=== PATIENT | female | born 1960 | race Caucasian/White ===

== ENCOUNTER 2016-11-20 09:58 | Emergency (ER) | payer MEDICAID ==
[~2016-11-20] VITALS: Ht 162.6 cm; Wt 93.8 kg
[2016-11-20 10:00] VITALS: BP 143/85
[2016-11-20] MEDS ORDERED: PROCHLORPERAZINE 5 MG/ML, 2ML ONE (10:50)
[2016-11-20] MEDS ORDERED: DIPHENHYDRAMINE 50 MG/ML, 1ML ONE (10:50)
== END 2016-11-20 10:57 | disposition home or self-care (01) ==
LOC: ED 10:37
DX: H10.021 Other mucopurulent conjunctivitis, right eye (principal); F12.10 Cannabis abuse, uncomplicated; E78.00 Pure hypercholesterolemia, unspecified
CPT/HCPCS: 99283

== ENCOUNTER 2019-08-26 04:04 | Emergency (ER) | payer MEDICAID, OTHER ==
[~2019-08-26] VITALS: Ht 162.6 cm; Wt 88.5 kg
[2019-08-26] MEDS ORDERED: ATOR20TA PO (04:11)
[2019-08-26] MEDS ORDERED: CEPH-368 PO (04:12)
--- NOTE | 2019-08-26 04:21 | NUR ---
THIS IS A 58Y F THAT COMES IN FOR ABD PAIN/ LOWER BACK PAIN. PT WAS SEEN [facility] FOR THIS AND WAS TOLD THAT MAYBE SHE HAS A KIDNEY INFECTION. PT WAS GIVEN ABX AND HAS STARTED TAKING THEM DIRECTED. PT CONNECTED TO MONITORING VSS, NADN.
[2019-08-26 04:41] LABS: MICROSCOPIC INDICATED
[2019-08-26] MEDS ORDERED: ONDANSETRON 2MG/ML, 2ML ONE (04:56)
[2019-08-26] MEDS ORDERED: KETOROLAC 30 MG/1 ML ONE (04:56)
[2019-08-26] MEDS ORDERED: SODIUM CHLORIDE FLUSH 10ML SYR IVF ONE (05:00)
[2019-08-26] MEDS ORDERED: ONDANSETRON 2MG/ML, 2ML IVPush ONE ×2 (05:00→07:30)
[2019-08-26] MEDS ORDERED: KETOROLAC 30 MG/1 ML IVPush ONE (05:00)
[2019-08-26 05:27] LABS: BASOPHILS # (AUTO) 0.02 x10^3/uL (0-0.1); BASOPHILS % (AUTO) 0 % (0-1); EOSINOPHILS % (AUTO) 1 % (1-7); LYMPHOCYTES # (AUTO) 1.33 x10^3/uL (1-3.4); LYMPHOCYTES % (AUTO) 15 % (22-44); MD NO; MEAN CORPUSCULAR HEMOGLOBIN 31.1 pg (27.0-34.8); MEAN CORPUSCULAR HGB CONC 33.6 g/dL (32.4-35.8); MEAN CORPUSCULAR VOLUME 92.5 fL (80-100); MONOCYTES # (AUTO) 0.79 x10^3/uL (0.2-0.8); MONOCYTES % (AUTO) 9 % (2-9); NEUTROPHILS % (AUTO) 75 % (42-75); PLATELET COUNT 279 x10^3/uL (130-400); RED BLOOD COUNT 4.03 x10^6/uL (3.82-5.3); RED CELL DISTRIBUTION WIDTH 13.7 % (9.6-15.2)
[2019-08-26 05:41] LABS: ALANINE AMINOTRANSFERASE 25 U/L (12-78); ALBUMIN 3.3 g/dL (3.4-5.0); ANION GAP 8 mmol/L (5-15); CALCIUM 8.6 mg/dL (8.5-10.1); CHLORIDE 110 mmol/L (98-107); CREATININE 1.06 mg/dL (0.55-1.02)
[2019-08-26 05:43] LABS: ALKALINE PHOSPHATASE 116 U/L (45-117); BILIRUBIN,TOTAL 0.6 mg/dL (0.2-1.0)
[2019-08-26] MEDS ORDERED: OMNIPAQUE 350 MG/ML, 100ML BOTTLE ONE (06:33)
--- NOTE | 2019-08-26 07:16 | NUR ---
STRAIGHT CATH PERFORMED. PT TOLERATED WELL. VSS AT THIS TIME, PT STATES PAIN IS COMING BACK BUT DENIES NEED FOR PAIN MEDICATION AT THIS TIME, ERPROVIDER PLACED ORDER FOR PRN SHOULD PT REQUEST
[2019-08-26] MEDS ORDERED: MORPHINE SULFATE 4 MG/ML, 1ML IVPush PRN (07:30)
[2019-08-26 07:45] LABS: MICROSCOPIC INDICATED
[2019-08-26 08:36] VITALS: BP 130/58
== END 2019-08-26 09:36 | disposition home or self-care (01) ==
LOC: ED 05:21
DX: N13.2 Hydronephrosis with renal and ureteral calculous obstruction (principal); E78.00 Pure hypercholesterolemia, unspecified; Z88.8 Allergy status to other drugs, medicaments and biological substances
CPT/HCPCS: 36415; 74177; 80053; 81001; 83690; 85025; 87086; 96374; 96375; 99285; J1885; J2405; Q9967

== ENCOUNTER 2019-08-27 20:45 | Inpatient (IN) | payer OTHER ==
[~2019-08-27] VITALS: Ht 162.6 cm; Wt 96.9 kg
[~2019-08-27 20:45] MED LIST: ATOR20TA PO; CEPH-368 PO
[2019-08-27] MEDS ORDERED: KETOROLAC 30 MG/1 ML ONE (21:30)
[2019-08-27] MEDS ORDERED: MORPHINE SULFATE 4 MG/ML, 1ML ONE (21:30)
[2019-08-27] MEDS ORDERED: SODIUM CHLORIDE FLUSH 10ML SYR IVF ONE (21:30)
[2019-08-27] MEDS ORDERED: MORPHINE SULFATE 4 MG/ML, 1ML IVPush PRN (21:30)
[2019-08-27] MEDS ORDERED: KETOROLAC 30 MG/1 ML IVPush ONE (21:30)
[2019-08-27] MEDS ORDERED: ONDANSETRON 2MG/ML, 2ML ONE (21:30)
[2019-08-27] MEDS ORDERED: ONDANSETRON 2MG/ML, 2ML IVPush ONE (21:30)
--- NOTE | 2019-08-27 21:30 | NUR ---
PT AMBULATED TO BATHROOM WITH OUT DIFFICULTY
--- NOTE | 2019-08-27 21:37 | NUR ---
IV PLACED, LABS/URINE SENT VIA TUBE SYSTEM.
[2019-08-27 21:46] LABS: BASOPHILS # (AUTO) 0.04 x10^3/uL (0-0.1); BASOPHILS % (AUTO) 0 % (0-1); EOSINOPHILS # (AUTO) 0.19 x10^3/uL (0-0.4); EOSINOPHILS % (AUTO) 2 % (1-7); LYMPHOCYTES # (AUTO) 1.47 x10^3/uL (1-3.4); LYMPHOCYTES % (AUTO) 13 % (22-44); MD NO; MEAN CORPUSCULAR HEMOGLOBIN 31.1 pg (27.0-34.8); MEAN CORPUSCULAR HGB CONC 33.6 g/dL (32.4-35.8); MEAN CORPUSCULAR VOLUME 92.3 fL (80-100); MEAN PLATELET VOLUME 8.2 fL (7.4-10.4); MONOCYTES # (AUTO) 0.83 x10^3/uL (0.2-0.8); MONOCYTES % (AUTO) 7 % (2-9); NEUTROPHILS # (AUTO) 9.23 x10^3/uL (1.8-6.8); NEUTROPHILS % (AUTO) 78 % (42-75); PLATELET COUNT 302 x10^3/uL (130-400); RED CELL DISTRIBUTION WIDTH 13.5 % (9.6-15.2)
[2019-08-27 21:48] LABS: ALANINE AMINOTRANSFERASE 31 U/L (12-78); ALBUMIN 3.5 g/dL (3.4-5.0); ANION GAP 3 mmol/L (5-15); CALCIUM 8.7 mg/dL (8.5-10.1); CHLORIDE 108 mmol/L (98-107); CREATININE 1.25 mg/dL (0.55-1.02)
[2019-08-27 21:50] LABS: ALKALINE PHOSPHATASE 130 U/L (45-117); BILIRUBIN,TOTAL 0.6 mg/dL (0.2-1.0); TOTAL PROTEIN 7.6 g/dL (6.4-8.2)
--- NOTE | 2019-08-27 21:55 | NUR ---
medications for pt given to flor hernández in report.
[2019-08-27 22:03] LABS: MICROSCOPIC AUTO
[2019-08-27 23:04] LABS: MICROSCOPIC INDICATED
--- NOTE | 2019-08-28 00:20 | NUR ---
Report received from GOSIA Tejeda. This RN to assume care. Patient to be admitted.
[2019-08-28] MEDS ORDERED: OXYcodone IR 5MG TABLET PO PRN (01:00)
[2019-08-28] MEDS ORDERED: POLYETHYLENE GLYCOL 17 GM PACKET PO PRN (01:00)
[2019-08-28] MEDS ORDERED: PROMETHAZINE 25 MG/ML, 1ML IM PRN (01:00)
[2019-08-28] MEDS ORDERED: ONDANSETRON 2MG/ML, 2ML IVPush PRN ×2 (01:00→15:30)
[2019-08-28] MEDS ORDERED: ACETAMINOPHEN 325 MG TABLET PO PRN ×2 (01:00→15:30)
[2019-08-28] MEDS ORDERED: BISACODYL 10 MG SUPP PR PRN (01:00)
[2019-08-28] MEDS: ATORVASTATIN 20 MG TABLET PO SCH ×2 (01:00→20:41)
[2019-08-28] MEDS ORDERED: morphine SULFATE 10 MG/ML, 1ML IVPush PRN (01:00)
[2019-08-28] MEDS ORDERED: ONDANSETRON ODT 4 MG PO PRN (01:00)
[2019-08-28] MEDS ORDERED: DOCUSATE 100 MG CAPSULE PO PRN (01:00)
--- NOTE | 2019-08-28 01:02 | NUR ---
Report given to GOSIA Mcdowell. Patient to be transferred to room [id number].
[2019-08-28 01:05] VITALS: BP 143/82
[2019-08-28 01:27] LABS: FREE T4 (FREE THYROXINE) 1.05 ng/dL (0.76-1.46)
[2019-08-28] MEDS: SODIUM CHLORIDE 0.9% 1,000 ML IV SCH ×2 (02:24→11:02)
[2019-08-28] MEDS: METRONIDAZOLE PMX 500MG/100ML 100 ML IV SCH ×2 (02:24→13:36)
[2019-08-28 06:36] VITALS: BP 115/63
[2019-08-28 09:51] LABS: BASOPHILS # (AUTO) 0.03 x10^3/uL (0-0.1); BASOPHILS % (AUTO) 0 % (0-1); EOSINOPHILS # (AUTO) 0.13 x10^3/uL (0-0.4); EOSINOPHILS % (AUTO) 2 % (1-7); LYMPHOCYTES # (AUTO) 1.93 x10^3/uL (1-3.4); LYMPHOCYTES % (AUTO) 24 % (22-44); MD NO; MEAN CORPUSCULAR HEMOGLOBIN 30.9 pg (27.0-34.8); MEAN CORPUSCULAR VOLUME 93.5 fL (80-100); MEAN PLATELET VOLUME 7.9 fL (7.4-10.4); MONOCYTES # (AUTO) 0.67 x10^3/uL (0.2-0.8); MONOCYTES % (AUTO) 8 % (2-9); NEUTROPHILS # (AUTO) 5.25 x10^3/uL (1.8-6.8); NEUTROPHILS % (AUTO) 65 % (42-75); PLATELET COUNT 261 x10^3/uL (130-400); RED BLOOD COUNT 3.86 x10^6/uL (3.82-5.3); RED CELL DISTRIBUTION WIDTH 13.6 % (9.6-15.2)
[2019-08-28 09:57] LABS: ANION GAP 4 mmol/L (5-15); CALCIUM 8.3 mg/dL (8.5-10.1); CHLORIDE 111 mmol/L (98-107)
[2019-08-28 10:00] LABS: ALANINE AMINOTRANSFERASE 24 U/L (12-78); ALKALINE PHOSPHATASE 120 U/L (45-117); BILIRUBIN,TOTAL 0.5 mg/dL (0.2-1.0); TOTAL PROTEIN 6.5 g/dL (6.4-8.2)
[2019-08-28 12:13] VITALS: BP 114/63
[2019-08-28] MEDS ORDERED: FENTANYL PF 250 MCG/5ML ONE (14:49)
[2019-08-28] MEDS ORDERED: MIDAZOLAM 1 MG/ML, 2ML ONE (14:49)
[2019-08-28] MEDS ORDERED: PROPOFOL 10 MG/ML, 20ML ONE (14:50)
[2019-08-28] MEDS ORDERED: CEFAZOLIN 1,000 MG ONE (14:50)
[2019-08-28] MEDS ORDERED: GLYCOPYRROLATE 0.2MG/1ML, 5ML ONE (14:50)
[2019-08-28] MEDS ORDERED: DEXAMETHASONE 4 MG/ML, 1ML ONE (14:50)
[2019-08-28] MEDS ORDERED: ONDANSETRON 2MG/ML, 2ML ONE (14:50)
[2019-08-28] MEDS ORDERED: NEOSTIGMINE 1 MG/ML, 10ML ONE (14:50)
[2019-08-28] MEDS ORDERED: ROCURONIUM 10MG/ML,5ML ONE (14:50)
[2019-08-28] MEDS ORDERED: KETOROLAC 30 MG/1 ML ONE (14:50)
[2019-08-28] MEDS ORDERED: CHLORHEXIDINE 15 ML UDC ONE (14:52)
[2019-08-28] MEDS ORDERED: CHLORHEXIDINE 15 ML UDC MM STA (14:53)
[2019-08-28] MEDS ORDERED: OMNIPAQUE 350 MG/ML, 50 ML BOTTLE ONE (15:15)
[2019-08-28] MEDS ORDERED: MEPERIDINE/PF 25MG/0.5ML IVPush PRN (15:30)
[2019-08-28] MEDS ORDERED: PROMETHAZINE 25 MG/ML, 1ML IVPush PRN (15:30)
[2019-08-28] MEDS ORDERED: LABETALOL 5MG/ML, 20ML IV PRN (15:30)
[2019-08-28] MEDS ORDERED: OXYcodone 5 MG/5 ML ORAL.SOL UDC PO PRN (15:30)
[2019-08-28] MEDS ORDERED: FENTANYL PF 100 MCG/2ML IV PRN (15:30)
[2019-08-28] MEDS ORDERED: HYDROmorphone 1 MG/ML, 1ML INJ IVPush PRN (15:30)
[2019-08-28] MEDS ORDERED: hydrALAzine 20 MG/ML, 1ML IV PRN (15:30)
[2019-08-28 18:25] VITALS: BP 136/84
[2019-08-28 19:16] VITALS: BP 122/77
[2019-08-29] MEDS: SODIUM CHLORIDE 0.9% 1,000 ML IV SCH ×2 (00:05→07:49)
[2019-08-29 00:54] VITALS: BP 120/75
[2019-08-29] MEDS: METRONIDAZOLE PMX 500MG/100ML 100 ML IV SCH ×2 (01:55→13:43)
[2019-08-29 06:41] LABS: CHOL/HDL RATIO 2.7; LDL/HDL RATIO 1.4 (0.5-3.0)
[2019-08-29 07:45] VITALS: BP 110/72
[2019-08-29 08:01] LABS: CHLORIDE 111 mmol/L (98-107)
[2019-08-29 08:09] LABS: ANION GAP 5 mmol/L (5-15); CALCIUM 8.7 mg/dL (8.5-10.1); CREATININE 1.15 mg/dL (0.55-1.02)
[2019-08-29 13:11] VITALS: BP 146/77
[2019-08-29] MEDS ORDERED: CEFD300C37 PO (13:36)
[2019-08-29] MEDS ORDERED: POLYETHYLENE GLYCOL 17 GM PACKET PO ONE (15:30)
== END 2019-08-29 16:15 | disposition home or self-care (01) | DRG 661 ==
LOC: ED 21:25 → EDIP 08-28 01:19 → 3N 08-28 01:41 → DCLOUNGE 08-29 15:49
PROVIDERS: ADMIT Internal Medicine; ATTEND Internal Medicine
PROC: 0T9B30Z Drainage of Bladder with Drainage Device, Percutaneous Approach (ICD-10-PCS; 2019-08-27)
PROC: 0T768DZ Dilation of Right Ureter with Intraluminal Device, Via Natural or Artificial Opening Endoscopic (ICD-10-PCS; 2019-08-28)
PROC: 0TC68ZZ Extirpation of Matter from Right Ureter, Via Natural or Artificial Opening Endoscopic (ICD-10-PCS; principal; 2019-08-28 14:00)
DX: N13.6 Pyonephrosis (principal); B96.89 Other specified bacterial agents as the cause of diseases classified elsewhere; N17.0 Acute kidney failure with tubular necrosis; N76.0 Acute vaginitis; E78.5 Hyperlipidemia, unspecified; B96.20 Unspecified Escherichia coli [E. coli] as the cause of diseases classified elsewhere; F17.200 Nicotine dependence, unspecified, uncomplicated; E78.00 Pure hypercholesterolemia, unspecified; F12.90 Cannabis use, unspecified, uncomplicated; Z20.818 Contact with and (suspected) exposure to other bacterial communicable diseases; Z87.442 Personal history of urinary calculi; Z90.710 Acquired absence of both cervix and uterus; Z88.1 Allergy status to other antibiotic agents; Z88.5 Allergy status to narcotic agent
CPT/HCPCS: 36415; 74018; 74420; 76770; 80048; 80053; 80061; 81001; 82360; 83036; 83735; 84439; 84443; 85025; 87077; 87086; 87186; 87635; 88300; C1726; G0378; J0690; J1100; J1885; J2250; J2405; J2550; J2704; J2710; J3010; Q9967; C1758; C2617; J2270; J7030